=== PATIENT | male | born 1975 | race Caucasian/White ===

== ENCOUNTER → 2017-01-25 | Outpatient (CLI) | payer OTHER ==
[~2017-01-25] MED LIST: ACETAMINOPHEN PO; ALPRAZOLAM PO; CANASA1000 MG/S1 RC; CARAFATE1 G PO; CIPRO PO; CORTENEMA100 MG/60 RC; DARVOCET-N 1001 TAB PO; EFFEXOR XR75 MG PO; FLEXERIL10 MG PO; HEARTBURN RELIE75 MG; HYDROCODON-ACE1 EAC7; HYDROCODON-ACE1 EAC7 PO; HYDROCODONE-APA1 T55 PO; NEXIUM PO; ORAP1 MG; ORAP2 MG PO; ORAPRED ODT10 MG PO; PAXIL PO; PERCOCET PO; PHENERGAN25 MG PO; PREVACID PO; PRILOSEC20 MG PO; RISPERIDONE PO; TEGRETOL PO; TENEX1 MG PO
--- NOTE | ~2017-01-25 | US113 ---
[facility] A Service of [facility] & [facility] RADIOLOGY TEXT RESULTS PATIENT: TANA DOMÍNGUEZ LOCATION: [facility] : 75 UNIT #: [id number] AGE: [address]: Babatunde Lugo MD SEX: M ORDER DR: [id number] [facility] [address] [place], [place] [address] [id number] O MR#: [id number] Acc #: [id number] NAME: TANA DOMÍNGUEZ : 1975 SEX: M STUDY DATE/TIME: 01/25/2017 15:15 UNIT: [facility] ROOM: STUDY DESCRIPTION: US Scrotal Duplex Complete Attending Physician: Babatunde Lugo M.D. Referring Physician: Babatunde Lugo M.D. Ordering Physician: Babatunde Lugo M.D. Primary Care Physician: Davis Krishnamurthy M.D. MEDICAL IMAGING REPORT This report is preliminary unless electronic signature is present EXAM Scrotal ultrasound INDICATIONS Bilateral testicular pain for the past 10 years. PROCEDURE Doe-scale and Doppler imaging scrotum and scrotal contents. COMPARISON STUDIES 04/27/2011 FINDINGS The right testicle measures 3.0 x 2.1 x 4.2 cm. No mass. Left testicle measures 2.6 x 1.9 x 3.9 cm. No mass. Testicles show normal flow. IMPRESSION Negative renal ultrasound Dictated by... Medhat Louie M.D. THIS IS AN ELECTRONICALLY VERIFIED REPORT Medhat Louie M.D. at 01/26/2017 7:02 AM LATISHA/[email or web address] TD: 01/25/2017 22:57 JOB #: [id number] MEDICAL IMAGING REPORT Page 1 of 1 COPY
== END | disposition home or self-care (01) ==
LOC: CGUS 14:41
DX: N50.89 Other specified disorders of the male genital organs (principal)
CPT/HCPCS: 93975

== ENCOUNTER → 2017-04-13 | Outpatient (CLI) | payer OTHER ==
--- NOTE | ~2017-04-13 | CR63 ---
[facility] A Service of [facility] & [facility] RADIOLOGY TEXT RESULTS PATIENT: TANA DOMÍNGUEZ LOCATION: [facility] : 75 UNIT #: [id number] AGE: [address]: Karissa Peña MD SEX: M ORDER DR: [id number] [facility] [address] [place], [place] [address] [id number] O MR#: [id number] Acc #: [id number] NAME: TANA DOMÍNGUEZ. : 1975 SEX: M STUDY DATE/TIME: 04/13/2017 15:09 UNIT: [facility] ROOM: STUDY DESCRIPTION: CR Chest 2 View Attending Physician: Karissa Peña M.D. Referring Physician: Karissa Peña M.D. Ordering Physician: Karissa Peña M.D. Primary Care Physician: Davis Krishnamurthy M.D. MEDICAL IMAGING REPORT This report is preliminary unless electronic signature is present EXAM Chest, 04/13/2017; [facility]. HISTORY 41-year-old male with a history of positive colitis, gastrointestinal hemorrhage, persistent cough x1 week. COMPARISON Chest, 02/12/2015. FINDINGS PA and lateral chest views show normal cardiac size and configuration. Hilar structures and mediastinal contours are preserved. Bilateral lungs are expanded and clear. Costophrenic angles are preserved. IMPRESSION Negative chest. Dictated by... Henrique Briscoe M.D. THIS IS AN ELECTRONICALLY VERIFIED REPORT Henrique Briscoe M.D. at 04/16/2017 8:08 AM Sarah TD: 04/13/2017 21:42 JOB #: [id number] MEDICAL IMAGING REPORT Page 1 of 1 COPY
== END | disposition home or self-care (01) ==
LOC: CRAD 14:56
DX: R05 Cough (principal); K51.00 Ulcerative (chronic) pancolitis without complications; K92.2 Gastrointestinal hemorrhage, unspecified
CPT/HCPCS: 71020